=== PATIENT | male | born 1965 | race Caucasian/White ===

== ENCOUNTER 2017-12-19 06:55 | Day surgery (SDC) | payer OTHER ==
[~2017-12-19] VITALS: Ht 182.9 cm; Wt 126.5 kg
[~2017-12-19 06:55] MED LIST: LISINOPRIL-HCT1 EAC2 PO
[2017-12-19] MEDS ORDERED: CIPRO500 MG (09:37)
--- NOTE | 2017-12-19 11:10 | NUR ---
12/19/17 1110 Caty Cedillo 1053 PT ARRIVED IN PACU WITH ORAL AIRWAY IN PLACE. [address] 1055 PT AWAKE TALKING TO STAFF. NO C/O'S. 1105 EATING ICE CHIPS. OXYGEN REMOVED. O2 SATS 94-99% ON RA.
--- NOTE | 2017-12-19 11:24 | NUR ---
PT IS BACK TO DS FROM PACU. HE REPORTS THAT HE IS HUNGRY. SIGNIFICANT OTHER IS AT THE BEDSIDE. HE IS EATING ICE CHIPS. CALL LIGHT WITHIN REACH. NO OTHER C/O'S AT THIS TIME. WILL REASSESS WITHIN THE HOUR.
--- NOTE | 2017-12-19 12:41 | NUR ---
has taken pudding water 200mls. amb to br did well. voids 200mls dark kadie urine. denies pain and declines offer pain med. wants to go home.
--- NOTE | 2017-12-19 14:09 | NUR ---
PT ALERT, ORIENTED AND SUPPORTED BY CLINT [place]. PT SEEMED PREPARED, BOTH HAD FEW QUESTIONS. PT REQUESTED PRAYER, WILL CONTINUE TO FOLLOW NEEDED
--- NOTE | 2017-12-21 07:53 | OR ---
[facility] [address] [place], [place] [address] Signed DATE OF OPERATION: 12/19/2017 SURGEON: Craig Joshua MD PREOPERATIVE DIAGNOSIS: Left hydrocele. POSTOPERATIVE DIAGNOSIS: Left hydrocele. NAMES OF PROCEDURE: Left hydrocelectomy. ANESTHESIA: General. ESTIMATED BLOOD LOSS: Minimal. COMPLICATIONS: None. SPECIMENS: Left hydrocele sac sent to pathology for evaluation. DRAINS: None. INDICATIONS FOR PROCEDURE: Mr. Canela is a very pleasant 52-year-old gentleman, who recently moved here from [place]. He presented to my clinic a couple of months ago with complaints of a progressively enlarging left hemiscrotum. He had undergone a scrotal ultrasound by his primary care physician, which confirmed the presence of a large left hydrocele. The hydrocele was causing the patient discomfort and was progressively enlarging. After discussion of the risks and benefits of the procedure, the patient has agreed to undergo elective hydrocelectomy. OPERATIVE FINDINGS: 1. On visual inspection of the external genitalia, the patient has a circumcised phallus with a glanular meatus. Testicles are descended bilaterally. He has severe enlargement Electronically Signed By: CRAIG JOSHUA MD 12/21/17 0753 PATIENT NAME: JORDAN CANELA OPERATIVE REPORT DATE OF : 69 REPORT #: [id number] PHYSICIAN: CRAIG JOSHUA MD PCP: DARRON,LUIS R BILLET RECORDER REPORT IS CONFIDENTIAL AND NOT TO BE RELEASED WITHOUT AUTHORIZATION [facility] [address] [facility] [place] [place] [address] Signed of the left hemiscrotum that effectively obstructs visualization of the right testicle. I am able to palpate the right testicle and it is normal to palpation. I am unable to palpate the left testicle. 2. The patient's large left-sided hydrocele was incised and approximately 500 mL of straw-colored fluid was drained from the tunica vaginalis. The redundant tunica was then excised and the remaining edges of the tunic were then everted and then closed in a simple interrupted fashion. DESCRIPTION OF PROCEDURE: After informed consent was obtained, the patient was taken back to the operating room. After general anesthesia was induced, he was placed in the supine position and his genitalia prepped and draped in standard sterile fashion. Using a marker, I marked the median raphae, which separates the left and right scrotum. I then made an approximately 6 cm transverse incision over the left hemiscrotum and dissected this down with both sharp and blunt dissection to the level of the tunica vaginalis. I bluntly dissected the tunica vaginalis layer from the neris-testicular layers throughout and then delivered the left testicle out from the left hemiscrotum. All the while, electrocautery was used to achieve and maintain hemostasis of the tunica vaginalis. I then used a knife and made a 1 cm incision in the tunica and drained approximately 500 mL of straw-colored fluid from the hydrocele sac. Using Metzenbaum scissors, I then incised the sac and removed the redundant portion of the left-sided hydrocele sac. This redundant portion was placed in a specimen cup and sent to pathology for evaluation. I used electrocautery to remain to excise a few additional areas of redundant sac. I then cauterized the edges of the hydrocele sac and then everted the edges and closed them in a simple running fashion using 3-0 Vicryl. I also placed a couple of additional simple interrupted sutures into the hydrocele sac for hemostatic purposes. I was sure to avoid the spermatic cord and when I reinserted the testicle in the left hemiscrotum, I made sure that the testicle was then appropriate orientation and not inadvertently torsing the left spermatic cord. Once adequate hemostasis was achieved and the everted edges of the sac were reapproximated to my satisfaction, the left testicle was placed back into the left hemiscrotum. I evaluated the dartos portion of the sac for any residual bleeders and then irrigated the left hemiscrotum with sterile saline. Once I was satisfied that hemostasis had been achieved and maintained, the dartos layer of the left hemiscrotum was closed in a continuous running fashion using 3-0 Vicryl. The superficial skin was closed in a simple interrupted fashion also using 3-0 Vicryl. The left hemiscrotum was then cleaned and dried and bacitracin was applied, along with scrotal fluffs and a scrotal support. The procedure was then terminated. The patient tolerated the procedure well without any complication. He will now be transferred to the postanesthesia care unit in stable condition. DISPOSITION: I discussed the details of today's procedure with his fiancee and answered all of her Electronically Signed By: CRAIG JOSHUA MD 12/21/17 0753 PATIENT NAME: JORDAN CANELA OPERATIVE REPORT DATE OF : 69 REPORT #: [id number] PHYSICIAN: CRAIG JOSHUA MD PCP: LUIS ROB REPORT IS CONFIDENTIAL AND NOT TO BE RELEASED WITHOUT AUTHORIZATION [address] [address] Signed questions. He will be discharged to home later today in stable condition once he awakes from general anesthetic. I gave the patient and his fiancee detailed instructions on how to manage the incision at home. He is not to perform any heavy lifting for at least three weeks. He is not to submerge the incision for at least 48 hours and when he does shower, he should let the water run over the incision. He also needs to apply ice for 20 minutes every 2 hours for the next 24 hours. He will be sent home today with Keflex 500 mg p.o. b.i.d. for a total of 7 days, along with Percocet 5/325 one tablet p.o. q.6 hours p.r.n. pain, dispense #30 with no refills. He will be scheduled to return to clinic in approximately 2 weeks for a postoperative visit. MD RUBEN Solorio/SELMA /[id number] Copies: ~ Electronically Signed By: CRAIG JOSHUA MD 12/21/17 0753 PATIENT NAME: JORDAN CANELA OPERATIVE REPORT DATE OF : 69 REPORT #: [id number] PHYSICIAN: CRAIG JOSHUA MD PCP: LUIS ROB REPORT IS CONFIDENTIAL AND NOT TO BE RELEASED WITHOUT AUTHORIZATION
== END 2017-12-19 12:30 | disposition home or self-care (01) ==
LOC: DS 06:55 → OPS 06:55 → DS 08:45 → OPS 12:30
PROVIDERS: Urology
PROC: 0VB70ZZ Excision of Left Tunica Vaginalis, Open Approach (ICD-10-PCS; principal; 2017-12-19 08:45)
DX: N43.3 Hydrocele, unspecified (principal); I10 Essential (primary) hypertension; E66.9 Obesity, unspecified; Z68.37 Body mass index [BMI] 37.0-37.9, adult; Z79.899 Other long term (current) drug therapy
CPT/HCPCS: 00920; J0330; J0696; J1100; J1885; J2250; J2405; J2704; J3010; J7120

== ENCOUNTER 2018-01-09 08:33 | Day surgery (SDC) | payer OTHER ==
[~2018-01-09] VITALS: Ht 182.9 cm; Wt 126.5 kg
[~2018-01-09 08:33] MED LIST changes: +CIPRO500 MG
--- NOTE | 2018-01-09 12:03 | NUR ---
01/09/18 1203 Aye Long 1154 PT ARRIVED TO PACU DROWSY. PT DENIES PAIN AND NAUSEA. RESP EVEN AND UNLABORED. 1158 O2 REMOVED, O2 SAT 100%.
--- NOTE | 2018-01-09 12:35 | NUR ---
PT ARRIVES TO DS RM 3 AWAKE. , RAMONE IN ROOM ON ARRIVAL. PT HAS WATER IN HAND ON ARRIVAL AND DENIES NAUSEA OR PAIN. PT STATES HE IS HUNGRY. CRACKERS AND PUDDING PROVIDED. CALL LIGHT AT LEFT OF PT, NO C/O'S AT THIS TIME.
[2018-01-09] MEDS ORDERED: ULTRAM50 MG PO (13:31)
[2018-01-09] MEDS ORDERED: LISINOPRIL-HCT1 EAC2 PO (13:32)
[2018-01-09] MEDS ORDERED: LEVAQUIN750 MG PO (13:33)
--- NOTE | 2018-01-09 13:57 | NUR ---
[id number]: PT UP TO BR WITH RN ASSIST. PT AMBULATES WELL AND VOIDS QS WITH NO PROBLEMS. [id number]: ALL DC CRITERIA MET. PT AGREES HE IS READY TO GO HOME. PT SPOUSE, RAMONE NOTIFIED. PT DRESSES HIMSELF WITH SPOUSE PRESENT IN . DC INSTRUCTIONS GIVEN IN PRESENCE OF PT AND SPOUSE. BOTH VERBALIZE AN UNDERSTANDING OF DC INSTRUCTIONS. SCRIPT GIVEN TO PT. [id number]: PT DC'S FROM DS RM 3 VIA WC WITH THIAGO HINSON.
--- NOTE | 2018-01-16 09:15 | OR ---
[facility] [address] [place], [place] [address] Signed DATE OF OPERATION: 01/09/2018 SURGEON: Craig Joshua MD PREOPERATIVE DIAGNOSES: 1. History of large left hydrocele. 2. Left scrotal hematoma. POSTOPERATIVE DIAGNOSES: 1. History of large left hydrocele. 2. Left scrotal hematoma. NAME OF PROCEDURE: Scrotal exploration with evacuation of scrotal hematoma. ANESTHESIA: General. ESTIMATED BLOOD LOSS: Minimal. COMPLICATIONS: None. SPECIMENS: None. INDICATIONS FOR PROCEDURE: Mr. Canela is a very pleasant 52-year-old gentleman who presented to my clinic around a month or so ago with complaints of a progressively enlarging left hemiscrotum. He underwent an ultrasound, which confirmed the presence of a large left hydrocele. Approximately three weeks ago, he underwent elective left-sided hydrocelectomy without complication. He was sent home that same day and then presented to clinic 5 days ago with complaints of progressive swelling of the left hemiscrotum since surgery. The patient had chosen to take ibuprofen postoperatively in lieu of his oral narcotic medication due to the nausea and vomiting that he was experiencing from his oral narcotic. Apparently, his left hemiscrotum began to grow in size fairly consistently since he was seen postoperatively five days ago. Examination revealed a grapefruit-sized swelling in the left hemiscrotum, at which time I thought it was consistent with a hematocele on examination. He underwent a scrotal ultrasound, which Electronically Signed By: CRAIG JOSHUA MD 01/16/18 0915 PATIENT NAME: JORDAN CANELA OPERATIVE REPORT DATE OF : 69 REPORT #: [id number] PHYSICIAN: CRAIG JOSHUA MD PCP: LUIS ROB REPORT IS CONFIDENTIAL AND NOT TO BE RELEASED WITHOUT AUTHORIZATION [facility] [address] [place], [place] [address] Signed confirmed the presence of a thick fluid within the left hemiscrotum, consistent with either a pyocele or a hematocele. He presents today to undergo scrotal exploration with evacuation of what is likely a scrotal hematoma. OPERATIVE FINDINGS: 1. On examination of the external genitalia, the patient has a circumcised phallus with glanular meatus. His right testicle is descended and is normal on palpation. His left hemiscrotum is extremely enlarged and pink in color. There is no evidence of any obvious ecchymosis. His left scrotal incision is intact with no evidence of drainage or discharge. The left hemiscrotum is firm. When held up to a flash light, it does not illuminate. 2. Upon incision of the left hemiscrotum, approximately 200 mL of dark bloody fluid was drained from the left hemiscrotum. There was no evidence of any purulent material or infection. Once it was irrigated, the scrotum was then closed back again in two layers. DESCRIPTION OF PROCEDURE: After informed consent was obtained, the patient was taken back to the operating room. [facility] room table, where general anesthesia was induced. He was placed in a supine position and his genitalia was prepped and draped in a standard sterile fashion. Examination of the external genitalia was then performed. Using the previous incision as a guide, I reopened the existing incision using a #15 blade. The total length of the incision measured around 4 cm, in comparison to the original 6 cm length of the incision. I slowly dissected my way down through the skin and then through the dartos fascia. Once I entered the fluid-filled space, approximately 200 to 250 mL of bloody drainage was expelled from the left hemiscrotum. Again, there was no sign of purulence or infection. The entire left hemiscrotum was drained of the bloody fluid. I then performed a thorough exploration of the contents within the left hemiscrotum to be sure there was no residual active bleeding. The left hemiscrotum was then copiously irrigated with antibiotic solution. Once I was satisfied that there was no bleeding within the left hemiscrotum, I closed the scrotum in two layers. The dartos layer was closed in a continuous running fashion using 2-0 Vicryl. The skin was closed in a simple interrupted fashion using 3-0 Vicryl. The area was cleaned and dried and bacitracin was applied. The procedure was then terminated. The patient tolerated the procedure well without any complication. He will now be transferred to the postanesthesia care unit in stable condition. DISPOSITION: The patient will be discharged to home later today in the company of his amye. I discussed the details of today's procedure with the patient's amye and answered all of her questions. I strongly advised him to avoid all nonsteroidal anti-inflammatory drugs for at least the next 5 to 7 days in order to prevent the possibility of repeat hemorrhage. The patient will be sent home today with Ultram 50 mg 1 to 2 tablets p.o. Electronically Signed By: CRAIG JOSHUA MD 01/16/18 0915 PATIENT NAME: JORDAN CANELA OPERATIVE REPORT DATE OF : 69 REPORT #: [id number] PHYSICIAN: CRAIG JOSHUA MD PCP: LUIS ROB REPORT IS CONFIDENTIAL AND NOT TO BE RELEASED WITHOUT AUTHORIZATION [facility] [address] [place] [address] Signed q.8 hours p.r.n. pain. He has also been asked to continue his current antibiotic prescription, which is Levaquin 750 mg one tablet p.o. daily for the next seven days. He will be scheduled to return to clinic in 2 to 3 weeks for another repeat postoperative evaluation. MD RUBEN Solorio/SELMA /[id number] Copies: ~ Electronically Signed By: CRAIG JOSHUA MD 01/16/18 0915 PATIENT NAME: JORDAN CANELA OPERATIVE REPORT DATE OF : 69 REPORT #: [id number] PHYSICIAN: CRAIG JOSHUA MD PCP: LUIS ROB REPORT IS CONFIDENTIAL AND NOT TO BE RELEASED WITHOUT AUTHORIZATION
== END 2018-01-09 13:50 | disposition home or self-care (01) ==
LOC: DS 08:33 → OPS 08:33 → DS 09:50 → OPS 09:50
PROVIDERS: Urology
PROC: 0V950ZZ Drainage of Scrotum, Open Approach (ICD-10-PCS; principal; 2018-01-09 09:50)
DX: N99.840 Postprocedural hematoma of a genitourinary system organ or structure following a genitourinary system procedure (principal); E66.9 Obesity, unspecified; G47.33 Obstructive sleep apnea (adult) (pediatric); I10 Essential (primary) hypertension; Z79.899 Other long term (current) drug therapy; Z79.2 Long term (current) use of antibiotics; Z68.39 Body mass index [BMI] 39.0-39.9, adult
CPT/HCPCS: 00920; J0330; J0696; J1885; J2250; J2405; J2704; J3010; J7120